=== PATIENT | male | born 2000 | race Two or more races ===

== ENCOUNTER 2023-08-03 10:12 | Day surgery (SDC) | payer OTHER ==
[2023-08-02 10:35] VITALS: BMI 17.6
[2023-08-03] MEDS ORDERED: MIDAZOLAM HCL 2 MG/2 ML SINGLE DOSE VIAL ONE (13:27)
[2023-08-03] MEDS ORDERED: FENTANYL CITRATE/PF 50 MCG/ML VIAL ONE ×2 (13:27→15:55)
[2023-08-03] MEDS ORDERED: oxyCODONE HCL 5 MG TABLET PO PRN ×2 (13:42)
[2023-08-03] MEDS ORDERED: ONDANSETRON 4 MG/2 ML VIAL IVPUSH PRN (13:42)
[2023-08-03] MEDS ORDERED: PROPOFOL 40 ML ONE (13:48)
[2023-08-03] MEDS ORDERED: LIDOCAINE HCL 2% (20ML MULTI-DOSE VIAL) ONE (14:02)
[2023-08-03] MEDS ORDERED: BUPIVACAINE HCL/PF 0.25% (2.5MG/ML) 10 ML VIAL ONE (14:20)
[2023-08-03] MEDS ORDERED: oxyCODONE HCL 5 MG TABLET ONE (16:26)
[2023-08-03] MEDS: oxyCODONE HCL 5 MG TABLET PO ONE (16:30)
[2023-08-03 16:40] VITALS: RESP 16; TEMP 97.8
[2023-08-03 17:07] VITALS: BP 126/72; PULSE 69
== END 2023-08-03 17:07 | disposition home or self-care (01) ==
LOC: FASU 10:12
PROVIDERS: ATTEND Orthopaedic Surgery
PROC: 0PSQ04Z Reposition Left Metacarpal with Internal Fixation Device, Open Approach (ICD-10-PCS; principal; 2023-08-03 14:32)
DX: S62.327A Displaced fracture of shaft of fifth metacarpal bone, left hand, initial encounter for closed fracture (principal); X58.XXXA Exposure to other specified factors, initial encounter; Y93.9 Activity, unspecified; Y92.9 Unspecified place or not applicable
CPT/HCPCS: 73130-TC-LT-FY; 94760; C1713